=== PATIENT | male | born 1995 | race Caucasian/White ===

== ENCOUNTER 2017-09-13 14:04 | Emergency (ER) | payer OTHER ==
[~2017-09-13] VITALS: Ht 182.9 cm; Wt 78.0 kg
[2017-09-13 14:07] VITALS: TEMP 37.3; Ht 182.9 cm; Wt 78.0 kg
[2017-09-13] MEDS ORDERED: LORAZEPAM 1 MG TAB PO STA (14:17)
[2017-09-13] MEDS ORDERED: OLANZAPINE 5 MG TAB PO STA (14:17)
[2017-09-13] MEDS ORDERED: LORAZEPAM 2 MG/ML 1 ML VIAL IM STA ×2 (14:39→15:30)
[2017-09-13] MEDS ORDERED: HALOPERIDOL LACTATE 5 MG/ML 1 ML VIAL IM STA ×2 (14:39→15:30)
--- NOTE | 2017-09-13 14:41 | EMERGENCY ROOM VISIT NOTE ---
History Report prepared by Shayy: Cathy Arauz Under the Supervision of: Dr. Benito Hernandez D.O. First contact with patient: 14:07 Chief Complaint: MENTAL HEALTH EVALUATION Stated Complaint: OTHER History of Present Illness The patient is a 22 year old male who presents to the Emergency Room with complaints of persistent abnormal behavior which began 3 days ago. His parents report that the patient's roommates contacted them stating that the patient has been acting more agitated then usual, noting that he has been staying up playing video games. They noted that the patient would walk out of their apartment and go on walks to random places, which was not usual for him. The patient's mother states that they arrived here 1 day ago from the [place] area after they received that call, noting that they took the patient to stay with them in hotel, where he slept for about 12 hours last night. His father states that the patient has not been acting like himself, noting that he has been getting angry very easily. He notes that when the patient woke up today, he was fine until they took him back to his apartment where he became agitated and angry again. His mother states that the patient is a healthy penny, who stays in shape by going to the gym and cooks his own meals at home. The patient reports that he has been smoking cigarettes and marijuana recently, stating that he is unaware of when the last time was. According to his roommates, the patient smoked marijuana yesterday. He also notes that he occasionally drinks some alcohol, but states that it is usually in small amounts. The patient states that he feels like people are watching, but is unable to identify why he feels this way. He denies having pain anywhere, any trouble breathing, recent falls, or hitting his head recently. His father reports a family history of depression. Source of History: patient, parent (parents) Onset: 2 days ago Position: other (mental health) Quality: other (mental health evaluation) Timing: other (persistent) Review of Systems See HPI for pertinent positives & negatives. A total of 10 systems reviewed and were otherwise negative. Past Medical & Surgical Medical Problems: (1) No Known Active Medical Problems Surgical Problems: (1) Hx of tonsillectomy Family History Depression Social History Smoking Status: Current Every Day Smoker Smokeless Tobacco Use: Unknown Alcohol Use: occasionally Drug Use: marijuana Marital Status: single Housing Status: lives with roommate Occupation Status: [employer] student Current/Historical Medications No Active Prescriptions or Reported Meds Allergies Coded Allergies: No Known Allergies (Unverified , 09/13/17) Physical Exam Vital Signs Date Time Temp Pulse Resp B/P (MAP) Pulse Ox O2 Delivery O2 Flow Rate FiO2 09/13/17 20:09 96 18 92/56 100 09/13/17 18:10 50 14 124/74 96 Room Air 09/13/17 16:19 55 14 113/72 95 Room Air 09/13/17 14:07 37.3 44 18 149/82 99 Room Air Physical Exam GENERAL: Patient is awake, alert, and in no acute distress. Patient is resting comfortably and showing no signs of anxiety EYES: The conjunctivae are clear. The pupils are round and reactive. EARS, NOSE, MOUTH AND THROAT: The nose is without any evidence of any deformity. Mucous membranes are moist tongue is midline NECK: The neck is nontender and supple. RESPIRATORY: Normal respiratory effort is noted there is no evidence of wheezing rhonchi or rales CARDIOVASCULAR: Regular rate and rhythm noted there no murmurs rubs or gallops normal S1 normal S2 GASTROINTESTINAL: The abdomen is soft. Bowel sounds are present in all quadrants. Abdomen is nontender MUSCULOSKELETAL/EXTREMITIES: There is no evidence of gross deformity full range of motion is noted in the hips and shoulders SKIN: There is no obvious evidence of any rash. There are no petechiae, pallor or cyanosis noted. NEUROLOGIC: Patient is awake alert and oriented x3 strength is symmetric patellar reflexes are 2+ bilaterally PSYCH: Affect is animated. Patient has tangential thought process with paranoid thought. Currently denies suicidal or homicidal ideations. Medical Decision & Procedures ER Provider Diagnostic Interpretation: Radiology results as stated below per my review and radiologist interpretation: HEAD WITHOUT CONTRAST (CT) CT DOSE: 614.27 mGy.cm HISTORY: Mental status change OVERDOSE TECHNIQUE: Multiaxial CT images of the head were performed without the use of intravenous contrast. A dose lowering technique was utilized adhering to the principles of ALARA. Comparison: None. Findings: Considerable hypertrophic and edematous change of the nasal turbinates. Trace mucosal thickening of the ethmoid sinuses. The calvarium and skull base are intact. The ventricles and sulci are within normal limits. There is no mass, hematoma, midline shift, or acute infarct. Impression: No acute intracranial abnormality. Considerable hypertrophic/edematous changes the nasal turbinates. The above report was generated using voice recognition software. It may contain grammatical, syntax or spelling errors. Electronically signed by: Cody Ac M.D. 09/13/2017 5:22 PM Dictated Date/Time: 09/13/2017 5:21 PM Laboratory Results 09/13/17 16:06 Red Blood Count 5.28, Mean Corpuscular Volume 81.1, Mean Corpuscular Hemoglobin 30.5, Mean Corpuscular Hemoglobin Concent 37.6, Mean Platelet Volume 9.8, Neutrophils (%) (Auto) 67.2, Lymphocytes (%) (Auto) 23.7, Monocytes (%) (Auto) 7.9, Eosinophils (%) (Auto) 0.8, Basophils (%) (Auto) 0.2, Neutrophils # (Auto) 4.32, Lymphocytes # (Auto) 1.52, Monocytes # (Auto) 0.51, Eosinophils # (Auto) 0.05, Basophils # (Auto) 0.01 09/13/17 16:05 Test 09/13/17 14:10 09/13/17 16:05 09/13/17 16:06 Urine Color YELLOW Urine Appearance CLEAR (CLEAR) Urine pH 6.5 (4.5-7.5) Urine Specific [place] 1.007 (1.000-1.030) Urine Protein NEG (NEG) Urine Glucose (UA) NEG (NEG) Urine Ketones NEG (NEG) Urine Occult Blood NEG (NEG) Urine Nitrite NEG (NEG) Urine Bilirubin NEG (NEG) Urine Urobilinogen NEG (NEG) Urine Leukocyte Esterase NEG (NEG) Urine Opiates Screen NEG (NEG) Urine Methadone, Qualitative NEG (NEG) Urine Barbiturates NEG (NEG) Urine Phencyclidine (PCP) Level NEG (NEG) Ur Amphetamine/Methamphetamine NEG (NEG) MDMA (Ecstasy) Screen NEG (NEG) Urine Benzodiazepines Screen NEG (NEG) Urine Cocaine Metabolite NEG (NEG) Urine Marijuana (THC) POS (NEG) Prothrombin Time 10.7 SECONDS (9.0-12.0) Prothromb Time International Ratio 1.0 (0.9-1.1) Activated Partial Thromboplast Time 30.4 SECONDS (21.0-31.0) Partial Thromboplastin Ratio 1.2 Anion Gap 8.0 mmol/L (3-11) Est Creatinine Clear Calc Drug Dose 125.6 ml/min Estimated GFR () 120.6 Estimated GFR (Non- 104.1 BUN/Creatinine Ratio 12.3 (10-20) Calcium Level 9.4 mg/dl (8.5-10.1) Total Bilirubin 0.8 mg/dl (0.2-1) Direct Bilirubin 0.2 mg/dl (0-0.2) Aspartate Amino Transf (AST/SGOT) 21 U/L (15-37) Alanine Aminotransferase (ALT/SGPT) 23 U/L (12-78) Alkaline Phosphatase 81 U/L (45-117) Total Creatine Kinase 309 U/L (39-308) Creatine Kinase MB 1.8 ng/ml (0.5-3.6) Creatine Kinase MB Ratio 0.6 (0-3.0) Troponin I < 0.015 ng/ml (0-0.045) Total Protein 8.4 gm/dl (6.4-8.2) Albumin 4.6 gm/dl (3.4-5.0) Lipase 106 U/L (73-393) Salicylates Level < 1.7 mg/dl (2.8-20) Acetaminophen Level < 2 ug/ml (10-30) Ethyl Alcohol mg/dL < 3.0 mg/dl (0-3) White Blood Count 6.42 K/uL (4.8-10.8) Red Blood Count 5.28 M/uL (4.7-6.1) Hemoglobin 16.1 g/dL (14.0-18.0) Hematocrit 42.8 % (42-52) Mean Corpuscular Volume 81.1 fL (80-100) Mean Corpuscular Hemoglobin 30.5 pg (25-34) Mean Corpuscular Hemoglobin Concent 37.6 g/dl (32-36) Platelet Count 167 K/uL (130-400) Mean Platelet Volume 9.8 fL (7.4-10.4) Neutrophils (%) (Auto) 67.2 % Lymphocytes (%) (Auto) 23.7 % Monocytes (%) (Auto) 7.9 % Eosinophils (%) (Auto) 0.8 % Basophils (%) (Auto) 0.2 % Neutrophils # (Auto) 4.32 K/uL (1.4-6.5) Lymphocytes # (Auto) 1.52 K/uL (1.2-3.4) Monocytes # (Auto) 0.51 K/uL (0.11-0.59) Eosinophils # (Auto) 0.05 K/uL (0-0.5) Basophils # (Auto) 0.01 K/uL (0-0.2) RDW Standard Deviation 36.4 fL (36.4-46.3) RDW Coefficient of Variation 12.4 % (11.5-14.5) Immature Granulocyte % (Auto) 0.2 % Immature Granulocyte # (Auto) 0.01 K/uL (0.00-0.02) Laboratory results per my review. Medications Administered Medications (Trade) Dose Ordered Sig/Kera Route Start Time Stop Time Status Last Admin Dose Admin Haloperidol Lactate (Haldol Inj) 10 mg NOW STAT IM 09/13/17 14:39 09/13/17 14:41 DC 09/13/17 14:51 10 MG Lorazepam (Ativan Inj) 1 mg NOW STAT IM 09/13/17 14:39 09/13/17 14:41 DC 09/13/17 14:51 1 MG Haloperidol Lactate (Haldol Inj) 10 mg NOW STAT IM 09/13/17 15:30 09/13/17 15:31 DC 09/13/17 15:30 10 MG Lorazepam (Ativan Inj) 2 mg NOW STAT IM 09/13/17 15:30 09/13/17 15:31 DC 09/13/17 15:30 2 MG ECG Per My Interpretation Indication: altered mental status Rate (beats per minute): 59 Rhythm: sinus bradycardia Findings: no ectopy, other (No acute ST segments) Comparison ECG Date: no prior available ED Course 1407: The patient was evaluated in room A8. A complete history and physical examination were performed. 1439: Ordered Ativan Inj 1mg IM and Haldol Inj 10mg IM. 1530: Ordered Ativan Inj 2mg IM and Haldol Inj 10mg IM. 1635: I reevaluated the patient, who continued to sleep. Updated his parents on test findings. They verbalized complete understanding. 180: The patient's parents have returned from eating. I updated them on test findings, they verbalized complete understanding and agreement. Medical Decision Prior records/ancillary studies reviewed. Triage Nursing notes reviewed. Additional history obtained from his family. The patient's history was concerning for possible psychiatric disturbance. Differential diagnosis: Etiologies such as mood disorder, infection, hypoglycemia, electrolyte abnormalities, cardiac sources, intracerebral event, toxicologic, neurologic, as well as others were entertained. The patient is a 22-year-old male who presented to the emergency department for an evaluation with family members. The patient came to the emergency department with his parents. His parents were called by his roommates. According to his roommates the patient has been having trouble with not sleeping and has been staying up late at night playing video games. He also admits to using marijuana. The patient has no previous medical problems or psychiatric problems. He appeared to have very tangential thought process. He also appeared to have very poor insight into his overall condition. He had no active suicidal homicidal ideation. The patient felt threatened at one point and required sedation for patient safety as well as the safety of the staff. The patient was medically cleared in the emergency department. I discussed patient's laboratory and radiographic studies with him and his parents. The patient's primary care physician was notified by his father about his overall condition and did not feel that the patient would require inpatient management at this time. The family requested to be discharged with the patient. I did advise against this and initially wanted the patient to be placed for inpatient management but they requested to take him home. They were encouraged to stay with him at all times and be sure that one parent at least was with him 24 hours a day. They were given follow-up information including following up with the primary care physician as soon as possible and call crisis or return the emergency department immediately if symptoms change worsen or the need arises. Medication Reconcilliation Current Medication List: was personally reviewed by me Blood Pressure Screening Patient's blood pressure: Normal blood pressure Blood pressure disposition: Did not require urgent referral Impression Primary Impression: Acute psychosis Additional Impression: Acute anxiety Scribe Attestation The scribe's documentation has been prepared under my direction and personally reviewed by me in its entirety. I confirm that the note above accurately reflects all work, treatment, procedures, and medical decision making performed by me. Departure Information Dispostion Home / Self-Care Prescriptions No Active Prescriptions or Reported Meds Forms HOME CARE DOCUMENTATION FORM, IMPORTANT VISIT INFORMATION Patient Instructions My [facility] Additional Instructions Follow-up with your primary care physician as soon as possible. Follow-up with the therapist as soon as possible. Call crisis or return to the emergency department immediately if symptoms change worsen or the need arises. Continue to take all safety measures as we discussed. Be sure that a parent stays with you at all times. Problem Qualifiers
[2017-09-13 16:20] LABS: BASO % 0.2 %; BASO ABS # 0.01 K/uL (0-0.2); EOS % 0.8 %; EOS ABS # 0.05 K/uL (0-0.5); HEMATOCRIT 42.8 % (42-52); HEMOGLOBIN 16.1 g/dL (14.0-18.0); IG# 0.01 K/uL (0.00-0.02); LYMPH % 23.7 %; LYMPH ABS # 1.52 K/uL (1.2-3.4); MEAN CELL VOLUME 81.1 fL (80-100); MEAN CORPUSCULAR HEMOGLOBIN 30.5 pg (25-34); MEAN CORPUSCULAR HGB CONC 37.6 g/dl (32-36); MEAN PLATELET VOLUME 9.8 fL (7.4-10.4); MONO % 7.9 %; MONO ABS # 0.51 K/uL (0.11-0.59); NEUT % 67.2 %; NEUT ABS # 4.32 K/uL (1.4-6.5); PLATELET COUNT 167 K/uL (130-400); RED CELL DISTRIBUTION WIDTH CV 12.4 % (11.5-14.5); RED CELL DISTRIBUTION WIDTH SD 36.4 fL (36.4-46.3); WHITE BLOOD COUNT 6.42 K/uL (4.8-10.8)
[2017-09-13 16:27] LABS: PTT PATIENT 30.4 SECONDS (21.0-31.0)
[2017-09-13 16:39] LABS: ALBUMIN 4.6 gm/dl (3.4-5.0); ALT/SGPT 23 U/L (12-78); BLOOD UREA NITROGEN 13 mg/dl (7-18); CALCIUM 9.4 mg/dl (8.5-10.1); CARBON DIOXIDE 25 mmol/L (21-32); CREATININE 1.03 mg/dl (0.60-1.40); GLUCOSE 75 mg/dl (70-99); LIPASE 106 U/L (73-393); POTASSIUM 3.4 mmol/L (3.5-5.1); SODIUM 134 mmol/L (136-145)
[2017-09-13 16:44] LABS: ALKALINE PHOSPHATASE 81 U/L (45-117); AST/SGOT 21 U/L (15-37); CKMB 1.8 ng/ml (0.5-3.6); TOTAL PROTEIN 8.4 gm/dl (6.4-8.2)
--- NOTE | 2017-09-13 17:24 | DIAGNOSTIC IMAGING REPORT ---
HEAD WITHOUT CONTRAST (CT) CT DOSE: 614.27 mGy.cm HISTORY: Mental status change OVERDOSE TECHNIQUE: Multiaxial CT images of the head were performed without the use of intravenous contrast. A dose lowering technique was utilized adhering to the principles of ALARA. Comparison: None. Findings: Considerable hypertrophic and edematous change of the nasal turbinates. Trace mucosal thickening of the ethmoid sinuses. The calvarium and skull base are intact. The ventricles and sulci are within normal limits. There is no mass, hematoma, midline shift, or acute infarct. Impression: No acute intracranial abnormality. Considerable hypertrophic/edematous changes the nasal turbinates. The above report was generated using voice recognition software. It may contain grammatical, syntax or spelling errors. Electronically signed by: Cody Ac M.D. 09/13/2017 5:22 PM Dictated Date/Time: 09/13/2017 5:21 PM
[2017-09-13 20:09] VITALS: BP 92/56; PULSE 96; O2SAT 100
== END 2017-09-13 20:12 | disposition home or self-care (01) ==
LOC: C.EDB 14:05 → C.EDA 20:12
DX: F23 Brief psychotic disorder (principal); F41.9 Anxiety disorder, unspecified; F17.210 Nicotine dependence, cigarettes, uncomplicated; F12.90 Cannabis use, unspecified, uncomplicated; Z81.8 Family history of other mental and behavioral disorders